=== PATIENT | female | born 1970 | race African-American/Black ===

== ENCOUNTER 2017-04-27 16:03 | Emergency (ER) | payer SELFPAY ==
[~2017-04-27] VITALS: Ht 167.6 cm; Wt 128.0 kg
[2017-04-27 16:33] VITALS: BP 140/85
== END 2017-04-27 18:53 | disposition home or self-care (01) ==
LOC: ER 17:04
DX: S39.012A Strain of muscle, fascia and tendon of lower back, initial encounter (principal); F17.200 Nicotine dependence, unspecified, uncomplicated; Z88.0 Allergy status to penicillin; V49.88XA Car occupant (driver) (passenger) injured in other specified transport accidents, initial encounter; Y93.89 Activity, other specified; Y92.410 Unspecified street and highway as the place of occurrence of the external cause; Y99.8 Other external cause status
CPT/HCPCS: 99282

== ENCOUNTER 2018-10-12 11:42 | Emergency (ER) | payer SELFPAY ==
[~2018-10-12] VITALS: Ht 170.2 cm; Wt 130.0 kg
[2018-10-12] MEDS ORDERED: ACETAMINOPHEN 325MG TABLET PO ONE (14:00)
[2018-10-12] MEDS ORDERED: IBUPROFEN 600MG TABLET PO ONE (14:00)
[2018-10-12] MEDS ORDERED: CLINDAMYCIN HCL 150MG CAPSULE PO ONE (14:00)
[2018-10-12 15:30] VITALS: BP 162/78
== END 2018-10-12 15:47 | disposition home or self-care (01) ==
LOC: ER 11:42
DX: L03.114 Cellulitis of left upper limb (principal); F17.200 Nicotine dependence, unspecified, uncomplicated
CPT/HCPCS: 99284